=== PATIENT | male | born 1995 | race Caucasian/White ===

== ENCOUNTER 2019-10-05 16:30 | Emergency (ER) | payer SELFPAY ==
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
--- OUTSIDE RECORDS SUMMARY | ~2019-10-05 | XMS | Clinical Summary ---
Demographics + + + | Address | [address] | | | [place] [address] | + + + | Home Phone | | + + + | Preferred Language | Unknown | + + + | Marital Status | Single | + + + | Scientologist Affiliation | Unknown | + + + | Race | Unknown | + + + | Ethnic Group | Unknown | + + + Author + + + | Author | [facility] | | | and [place] | + + + | Organization | [facility] | | | and [place] [...] Team Providers + +------+ + | Care Operational Intelligence Analyst Name | Role | Phone | + +------+ + | Provider Not, In System | PCP | Unavailable | + +------+ + Allergies No Known Allergies Medications + + + +---------+------+------+-------+ | Medication | Sig | Dispensed | Refills | Star | End | Statu | | | | | | t | Date | s | | | | | | Date | | | + + + +---------+------+------+-------+ | losartan (COZAAR) | Take 50 mg by mouth | | 0 | | | Activ | | 50 mg tablet | Daily. | | | | | e | + + + +---------+------+------+-------+ | | Take 1 tablet by | | 0 | | | Activ | | HYDROcodone-acetamin | mouth every 6 hours | | | | | e | | ophen (NORCO) 5-325 | as needed for Pain. | | | | | | | mg per tablet | | | | | | | + + + +---------+------+------+-------+ | ibuprofen | Take 600 mg by mouth | | 0 | | | Activ | | (ADVIL,MOTRIN) 600 | every 6 hours as | | | | | e | | MG tablet | needed for Pain. | | | | | | + + + +---------+------+------+-------+ Active Problems + + + | Problem | Noted Date | + + + | Chronic low back pain | 09/09/2015 | + + + | Multilevel facet arthritis | 09/09/2015 | + + + | Chronic neck pain | 09/09/2015 | + + + Family History + + +------+ + | Medical History | Relation | Name | Comments | + + +------+ + | Early | Brother | | | + + +------+ + | Scoliosis | Brother | | | + + +------+ + | Heart failure | Father | JAX | | + + +------+ + | Hypertension | Father | JAX | | + + +------+ + | Other (see comment) | Father | JAX | DJD | + + +------+ + | Diabetes | Maternal | | | | | Grandfath | | | | | er | | | + + +------+ + | Eczema | Maternal | | | | | Grandfath | | | | | er | | | + + +------+ + | Emphysema | Maternal | | | | | Grandfath | | | | | er | | | + + +------+ + | Heart disease | Maternal | | | | | Grandfath | | | | | er | | | + + +------+ + | Arthritis | Maternal | | | | | Grandmoth | | | | | er | | | + + +------+ + | Hypertension | Maternal | | | | | Grandmoth | | | | | er | | | + + +------+ + | Crohn's disease | Maternal | | | | | Uncle | | | + + +------+ + | Fibromyalgia | Mother | | | + + +------+ + | Lupus | Mother | | | + + +------+ + | Other (see comment) | Mother | | DJD | + + +------+ + | Rheum arthritis | Mother | | | + + +------+ + | Sjogren's syndrome | Mother | | | + + +------+ + | Alcohol abuse | Other | | UNKNOWN RELATION | + + +------+ + | Bleeding problems | Other | | BLOOD CLOTS, UNKNOWN RELATION | + + +------+ + | Gout | Other | | UNKNOWN RELATION | + + +------+ + | Alcohol abuse | Paternal | | | | | Grandfath | | | | | er | | | + + +------+ + | Diabetes | Paternal | | | | | Grandfath | | | | | er | | | + + +------+ + | Heart attack | Paternal | | | | | Grandfath | | | | | er | | | + + +------+ + | Heart disease | Paternal | | | | | Grandfath | | | | | er | | | + + +------+ + | Stroke | Paternal | | | | | Grandfath | | | | | er | | | + + +------+ + | Breast cancer | Paternal | | | | | Grandmoth | | | | | er | | | + + +------+ + | Cancer | Paternal | | LEUKEMIA | | | Grandmoth | | | | | er | | | + + +------+ + | Heart disease | Paternal | | | | | Grandmoth | | | | | er | | | + + +------+ + | Hypertension | Paternal | | | | | Grandmoth | | | | | er | | | + + +------+ + | Neuropathy | Paternal | | | | | Grandmoth | | | | | er | | | + + +------+ + | Uterine cancer | Paternal | | | | | Grandmoth | | | | | er | | | + + +------+ + | Other (see comment) | Sister | | SPINAL BIFIDA | + + +------+ + | Other (see comment) | Sister | | OVER ABUNDANCE OF PROTEIN LOSS | + + +------+ + + +------+ + + | Relation | Name | Status | Comments | + +------+ + + | Brother | | | HOMICIDE, SHOT | | | | (Age | | | | | 20) | | + +------+ + + | Brother | | | | + +------+ + + | Child | | Alive | | + +------+ + + | Father | JAX | Alive | | + +------+ + + | Maternal Grandfather | | | LUNG PROBLEMS | | | | (Age | | | | | 65) | | + +------+ + + | Maternal Grandmother | | Alive | | + +------+ + + | Maternal Uncle | | Alive | | + +------+ + + | Maternal Uncle | | | | + +------+ + + | Mother | | Alive | | + +------+ + + | Other | | | | + +------+ + + | Paternal Grandfather | | | ID | | | | (Age | | | | | 57) | | + +------+ + + | Paternal Grandmother | | Alive | | + +------+ + + | Sister | | Alive | | + +------+ + + | Sister | | | | + +------+ + + | Sister | | | | + +------+ + + Social History + +-------+ +--------+------+ [...] recent travel history available. | + + Last Filed Vital Signs + + + [...] | | + + + + + Plan of Treatment + + + + + | Health Maintenance | Due Date | Last Done | Comments | + + + + + | Vaccine: | | | | | Dtap/Tdap/Td (1 - | 3 | | | | Tdap) | | | | + + + + + | Vaccine: Influenza | | | | | (#1) | 9 | | | + + + + + Results Not on filefrom Last 3 Months Insurance + +--------+ +--------+ +---------+--------+ | Payer | Benefi | Subscriber | Effect | Phone | Address | Type | | | t Plan | ID | mario | | | | | | / | | Dates | | | | | | Group | | | | | | + +--------+ +--------+ +---------+--------+ | [employer] | [employer] | [id number] | 08/18/ | [phone] | | Medica | | MEDICAID HMO | HEALTH | | 2015-P | 1 | | id | | | MDCD | | resent | | | | | | HMO [place] | | | | | | + +--------+ +--------+ +---------+--------+ + +--------+ +--------+ + + | Guarantor Name | Accoun | Relation to | Date | Phone | Billing Address | | | t Type | Patient | of | | | | | | | | | | + +--------+ +--------+ + + | Trae Roche W | Person | Self | [birth year] | [address] | | | al/Fam | | 1995 | [phone] | [place] [address] | | | shayy | | | 6 (Home) | | + +--------+ +--------+ + + Advance Directives + + + + + | Type | Date Recorded | Patient | Explanation | | | | Digital Composer | | + + + + + | Power of | | | | | Sales Support Coordinator | | | | + + + + + | Advance | | | | | Directive | | | | + + + + +
--- OUTSIDE RECORDS SUMMARY | ~2019-10-05 | XMS | Encounter Summary ---
Demographics + + + | Address | [address] | | | [place] [address] | + + + | Home Phone | | + + + | Preferred Language | Unknown | + + + | Marital Status | Single | + + + | Baptist Affiliation | Unknown | + + + | Race | Unknown | + + + | Ethnic Group | Unknown | + + + Author + + + | Author | [facility] | | | and [place] | + + + | Organization | [facility] | | | and [place] [...] Team Providers + +------+ + | Care Hand I Thermal Cutter Name | Role | Phone | + +------+ + | Provider Not, In System | PCP | Unavailable | + +------+ + Encounter Details +--------+ + + + + | Date | Type | Department | Care Team | Description | +--------+ + + + + | 09/09/ | Abstract | [facility] [place] | Jake, | | | 2014 | | PHYSIATRY [address] | [place] [address] | | | | | [place], | [place] [facility], | | | | | [place] [address] | [place] [address] | | | | | [phone] | [phone] | | | | | | | | +--------+ + + + + Social History + +-------+ [...] + + documented as of this encounter Plan of Treatment Not on filedocumented as of this encounter Visit Diagnoses Not on filedocumented in this encounter"
--- OUTSIDE RECORDS SUMMARY | ~2019-10-05 | XMS | Clinical Summary ---
Demographics + + + | Address | [address] | | | [place] [address] | + + + | Home Phone | | + + + | Preferred Language | Unknown | + + + | Marital Status | Single | + + + | Yazidi Affiliation | Unknown | + + + | Race | Unknown | + + + | Ethnic Group | Unknown | + + + Author + + + | Author | [facility] | | | and [place] | + + + | Organization | [facility] | | | and [place] [...] Team Providers + +------+ + | Care Icing Machine Operator Name | Role | Phone | [...] + | Paternal Grandfather | | | [place] | | | | (Age | | [...] | [employer] | MOD[employer] | [id number] | 08/18/ | [phone] | | Medica | | MEDICAID HMO [...] | 1995 | [phone] | [place] [address] | | | shayy | | | 6 (Home) | | + +--------+ +--------+ + + Advance Directives + + + + + | Type | Date Recorded | Patient | Explanation | | | | Cotton Feeder | | + + + + + | Power of | | | | | Mix Technician | | | | + + + + + | Advance | | | | | Directive | | | | + + + + +
--- OUTSIDE RECORDS SUMMARY | ~2019-10-05 | XMS | Encounter Summary ---
Demographics + + + | Address | [address] | | | [place] [address] | + + + | Home Phone | | + + + | Preferred Language | Unknown | + + + | Marital Status | Single | + + + | Yarsani Affiliation | Unknown | + + + | Race | Unknown | + + + | Ethnic Group | Unknown | + + + Author + + + | Author | [facility] | | | and [place] | + + + | Organization | [facility] | | | and [place] | [...] Team Providers + +------+ + | Care Medical Grade Shoemaker Name | Role | Phone | + [...] [address] | | | | | [place], | [place] [facility], | | | | | [place] [address] | [place] [address] | | | | | [phone] | [phone] | | | | | | | [...]
--- OUTSIDE RECORDS SUMMARY | ~2019-10-05 | XMS | Encounter Summary ---
Demographics + + + | Address | [address] | | | [place] [address] | + + + | Home Phone | | + + + | Preferred Language | Unknown | + + + | Marital Status | Single | + + + | Rastafari Affiliation | Unknown | + + + | Race | Unknown | + + + | Ethnic Group | Unknown | + + + Author + + + | Author | [facility] | | | and [place] | + + + | Organization | [facility] | | | and [place] [...] Team Providers + +------+ + | Care Beaming Inspector Name | Role | Phone | + [...] | | n | al disc | Early | [place] | | | | | displacement | Health and | [place], [place] | | | | | , lumbar | Service | [address] Phone: | | | | | region | | [phone] | | | | | [place] of | | Fax: | | | | | lumbar disc | | [phone] | | | | | without | | | | | | | myelopathy | | | +--------+--------+ + + + + Encounter Details +--------+---------+ + + + | Date | Type | Department | Care Team | Description | +--------+---------+ + + + | 09/09/ | Office | [facility] [place] | Jake, | Chronic low back | | 2014 | Visit | PHYSIATRY [address] | [place] [address] | pain (Primary Dx); | | | | [place], | [place], | Multilevel facet | | | | [place] [address] | [place] [address] | arthritis; Chronic | | | | [phone] | [phone] | neck pain | | | | [...] of blood sugars if you are diabetic. penitentiary risk can lead to osteoporosis which is [...] not feel pain. You must have a compressed air pile driver operator to get home from the hospital. You [...] of the procedure you must provide a compressed air pile driver operator to take you home. For all procedur [...] has no apparent deficits with short or correction memory. He has appropriate fund of knowledge [...]
[~2019-10-05 16:30] MED LIST: BACLOFEN10 MG PO; COZAAR50 MG PO; CYCLOBENZAPRINE5 MG PO; EFFEXOR XR75 MG PO; INDOMETHACIN50 MG PO; NORCO 5-325 TA1 EACH PO; VOLTAREN100 GM TOP
[2019-10-06] MEDS ORDERED: CYCLOBENZAPRINE10 MG PO (01:20)
== END 2019-10-05 16:51 | disposition left against medical advice (07) ==
LOC: ED 16:30
DX: Z53.21 Procedure and treatment not carried out due to patient leaving prior to being seen by health care provider (principal)

== ENCOUNTER 2019-10-06 00:25 | Emergency (ER) | payer SELFPAY ==
[~2019-10-06] VITALS: Ht 193 cm; Wt 131.5 kg
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
[2019-10-06] MEDS ORDERED: CYCLOBENZAPRINE10 MG PO (01:20)
== END 2019-10-06 01:28 | disposition home or self-care (01) ==
LOC: ED 00:25
DX: S16.1XXA Strain of muscle, fascia and tendon at neck level, initial encounter (principal); V43.52XA Car driver injured in collision with other type car in traffic accident, initial encounter; I10 Essential (primary) hypertension; Z79.899 Other long term (current) drug therapy
CPT/HCPCS: 72040; 99284-25

== ENCOUNTER 2020-08-26 19:10 | Emergency (ER) | payer OTHER ==
[~2020-08-26] VITALS: Ht 193 cm; Wt 131.5 kg
[~2020-08-26 19:10] MED LIST changes: +CYCLOBENZAPRINE10 MG PO
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
== END 2020-08-26 21:00 | disposition home or self-care (01) ==
LOC: ED 19:10
DX: S16.1XXA Strain of muscle, fascia and tendon at neck level, initial encounter (principal); S39.012A Strain of muscle, fascia and tendon of lower back, initial encounter; V43.52XA Car driver injured in collision with other type car in traffic accident, initial encounter; Z79.899 Other long term (current) drug therapy
CPT/HCPCS: 72040; 72100; 73080; 73110; 73560; 99284-25

== ENCOUNTER 2020-10-18 19:52 | Emergency (ER) | payer OTHER ==
[~2020-10-18] VITALS: Ht 193 cm; Wt 131.5 kg
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
[2020-10-18] MEDS ORDERED: CLONIDINE HCL0.1 MG PO (20:43)
[2020-10-18] MEDS ORDERED: AZITHROMYCIN250 MG PO (20:43)
[2020-10-18] MEDS ORDERED: BUTALB-ACETAMI1 EAC2 PO (20:43)
[2020-10-18] MEDS ORDERED: NORCO 5-325 TA1 EACH PO (23:21)
== END 2020-10-18 23:50 | disposition home or self-care (01) ==
LOC: ED 19:52
DX: U07.1 COVID-19 (principal); I10 Essential (primary) hypertension; F17.200 Nicotine dependence, unspecified, uncomplicated; Z79.899 Other long term (current) drug therapy
CPT/HCPCS: 80053; 85025; 96374; 96375; 99284-25; J1170; J1200; J1885; J2765; J7030

== ENCOUNTER 2020-10-19 19:03 | Emergency (ER) | payer OTHER ==
[~2020-10-19] VITALS: Ht 193 cm; Wt 131.5 kg
[~2020-10-19 19:03] MED LIST changes: +AZITHROMYCIN250 MG PO; +BUTALB-ACETAMI1 EAC2 PO; +CLONIDINE HCL0.1 MG PO
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
[2020-10-20] MEDS ORDERED: DILAUDID4 MG PO (16:16)
[2020-10-20] MEDS ORDERED: REGLAN10 MG PO (16:16)
== END 2020-10-19 20:58 | disposition home or self-care (01) ==
LOC: ED 19:03
DX: U07.1 COVID-19 (principal); R51.9 Headache, unspecified; I10 Essential (primary) hypertension; F17.200 Nicotine dependence, unspecified, uncomplicated; Z79.899 Other long term (current) drug therapy
CPT/HCPCS: 96374; 96375; 99283-25; J1100; J1170; J1885; J2405; J7030

== ENCOUNTER 2020-10-20 13:38 | Emergency (ER) | payer OTHER ==
[~2020-10-20] VITALS: Ht 193 cm; Wt 127.0 kg
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
[2020-10-20] MEDS ORDERED: REGLAN10 MG PO (16:16)
[2020-10-20] MEDS ORDERED: DILAUDID4 MG PO (16:16)
== END 2020-10-20 16:50 | disposition home or self-care (01) ==
LOC: ED 13:38
DX: U07.1 COVID-19 (principal); F17.200 Nicotine dependence, unspecified, uncomplicated; I10 Essential (primary) hypertension; Z79.899 Other long term (current) drug therapy
CPT/HCPCS: 96374; 96375; 99283-25; J1200; J1885; J2765; J7030

== ENCOUNTER 2020-10-22 18:49 | Emergency (ER) | payer OTHER ==
[~2020-10-22] VITALS: Ht 193 cm; Wt 127.0 kg
[~2020-10-22 18:49] MED LIST changes: +DILAUDID4 MG PO; +REGLAN10 MG PO
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
[2020-10-22] MEDS ORDERED: DILAUDID2 MG PO (20:59)
== END 2020-10-22 21:31 | disposition home or self-care (01) ==
LOC: ED 18:49
DX: U07.1 COVID-19 (principal); I10 Essential (primary) hypertension; Z79.899 Other long term (current) drug therapy
CPT/HCPCS: 96374; 96375; 99283-25; J1200; J1885; J2765; J7030

== ENCOUNTER 2021-10-02 13:05 | Emergency (ER) | payer OTHER ==
[~2021-10-02] VITALS: Ht 193 cm; Wt 117.3 kg
[~2021-10-02 13:05] MED LIST changes: +DILAUDID2 MG PO
--- OUTSIDE RECORDS SUMMARY | 2021-10-02 13:08 | XMS ---
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 Care History Medical/Surgical 10/20/2020 [facility] - PATIENT HAS A FOLLOW UP APT WITH DR WARD ON 10/25/2020. 10/06/2019 [facility] - Patient is currently established with [facility]. If patient is seen in the ED during business hours. Please contact CHWs at [facility]. Care Recommendation: If this patient has had 5 or more Emergency Department visits in the last 12 months.\T\nbsp; Patient will require education on the scope and purpose of the ED as an acute care provider not a Primary Care Provider and should not be utilized for chronic conditions.\T\nbsp; These are guidelines and the provider should exercise clinical judgment when providing care. 10/06/2019 [facility] Patient has follow up with Dr. Ward on 11/11/2019.\T\nbsp; Tried to call to advise of walk in clinic - patient\T\#39;s voicemail not set up.\T\nbsp; E.D. VISIT COUNT (12 MO.) 5 DI Ralph TOTAL 5 NOTE: Visits indicate total known visits. 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 - COVID-19 - Headache, unspecified - Headache, unspecified 10/20/2020 13:38 [facility] [place] TYPE: Emergency COMPLAINT: - HEADACHE DIAGNOSES: - Other residential (current) drug therapy - Nicotine dependence, unspecified, uncomplicated - COVID-19 - Essential (primary) hypertension - Headache, unspecified - Headache, unspecified 10/19/2020 19:03 [facility] [place] TYPE: Emergency COMPLAINT: - HEADACHE DIAGNOSES: - Headache, unspecified - Nicotine dependence, unspecified, uncomplicated - Headache, unspecified - COVID-19 - Other residential (current) drug therapy - Essential (primary) hypertension 10/18/2020 19:54 [facility] [place] TYPE: Emergency COMPLAINT: - HEADACHE DIAGNOSES: - Headache, unspecified - COVID-19 - Nicotine dependence, unspecified, uncomplicated - Headache, unspecified - Essential (primary) hypertension - Other residential (current) drug therapy INPATIENT VISIT TRACKING (12 MO.) No inpatient visits to display in this time frame [id number]
[2021-10-02] MEDS ORDERED: PAROXETINE HCL10 MG PO (13:19)
[2021-10-02] MEDS ORDERED: HYDROCODON-ACE1 EA10 PO (15:51)
== END 2021-10-02 16:05 | disposition home or self-care (01) ==
LOC: ED 13:05
DX: S39.011A Strain of muscle, fascia and tendon of abdomen, initial encounter (principal); X50.9XXA Other and unspecified overexertion or strenuous movements or postures, initial encounter; Y99.0 Civilian activity done for income or pay; I10 Essential (primary) hypertension; Z79.899 Other long term (current) drug therapy
CPT/HCPCS: 74177; 80053; 81001; 83690; 85025; 96375; 99284-25; J1885; J2270; J7030

== ENCOUNTER 2021-10-21 13:28 | Emergency (ER) | payer OTHER ==
[~2021-10-21] VITALS: Ht 193 cm; Wt 117.0 kg
[~2021-10-21 13:28] MED LIST changes: +HYDROCODON-ACE1 EA10 PO; +PAROXETINE HCL10 MG PO
--- OUTSIDE RECORDS SUMMARY | 2021-10-21 13:30 | XMS ---
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 - Has Care Guidelines - [facility] - 2 Visits in 30 Days - PDMP CARE PROVIDERS ANGY WARD Internal Medicine 10/06/2019-Current PHONE: Unknown Mary Carmen has no Care Guidelines for this patient. Care History Medical/Surgical 10/03/2021 [facility] Follow up with Dr. Ward on 10/18/2021 for abdominal pain that moved to the groin. 10/20/2020 [facility] - PATIENT HAS A FOLLOW UP APT WITH DR WARD ON 10/25/2020. 10/06/2019 [facility] - Patient is currently established with [facility]. If patient is seen in the ED during business hours. Please contact CHWs at [facility]. Care Recommendation: If this patient has had 5 or more Emergency Department visits in the last 12 months.\T\nbsp; Patient will require education on the scope and purpose of the ED as an acute care provider not a Primary Care Provider and should not be utilized for chronic conditions.\T\nbsp; These are guidelines and the provider should exercise clinical judgment when providing care. E.D. VISIT COUNT (12 MO.) 3 DI Ralph TOTAL 3 NOTE: Visits indicate total known visits. 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
[2021-10-21] MEDS ORDERED: LISINOPRIL10 MG PO (13:44)
[2021-10-21] MEDS ORDERED: PAXIL20 MG PO (13:45)
== END 2021-10-21 15:55 | disposition home or self-care (01) ==
LOC: ED 13:28
DX: R10.31 Right lower quadrant pain (principal); I10 Essential (primary) hypertension; Z79.899 Other long term (current) drug therapy
CPT/HCPCS: 74177; 80048; 85025; 96375; 99284-25; J2270; J2405; J7030; Q9967

== ENCOUNTER 2021-10-27 15:19 | Emergency (ER) | payer OTHER ==
[~2021-10-27] VITALS: Ht 193 cm; Wt 115.9 kg
[~2021-10-27 15:19] MED LIST changes: +LISINOPRIL10 MG PO; +PAXIL20 MG PO
--- OUTSIDE RECORDS SUMMARY | 2021-10-27 15:22 | XMS ---
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 - Has Care Guidelines - [facility] - 2 Visits in 30 Days CARE PROVIDERS MALCOLM WARDLM Internal Medicine 10/25/2021-Current PHONE: Unknown Mary Carmen has no Care Guidelines for this patient. Care History Medical/Surgical 10/26/2021 [facility] Patient was seen on 10/18/[address] Ward; no hernia detected on CT scan. Follow up visit on 11/10/[address] Lance for hernia/gallbladder/lesion consult. 10/25/2021 [facility] - Patient is currently established with [facility]. If patient is seen in the ED during business hours. Please contact CHWs at [facility]. Care Recommendation: If this patient has had 5 or more Emergency Department visits in the last 12 months. Patient will require education on the scope and purpose of the ED as an acute care provider not a Primary Care Provider and should not be utilized for chronic conditions. These are guidelines and the provider should exercise clinical judgment when providing care. 10/03/2021 [facility] Follow up with Dr. Ward on 10/18/2021 for abdominal pain that moved to the groin. Marc VISIT COUNT (12 MO.) 4 DI Ralph TOTAL 4 NOTE: Visits indicate total known visits. ED/UCC VISIT TRACKING (12 MO.) 10/27/2021 15:19 ID [facility] [place] TYPE: Emergency COMPLAINT: - ABDOMINAL PAIN 10/26/2021 16:24 [facility] [place] TYPE: Emergency COMPLAINT: - ABDOMINAL PAIN 10/21/2021 13:[address] [facility] [place] TYPE: Emergency COMPLAINT: - ABD PAIN DIAGNOSES: - Right lower quadrant pain - Unspecified abdominal pain - Essential (primary) hypertension - Other manager terminal (current) drug therapy - Right lower quadrant pain 10/02/2021 13:05 [facility] [place] [facility] [place] TYPE: Emergency COMPLAINT: - ABDOMINAL PAIN DIAGNOSES: - Other and unspecified overexertion or strenuous movements or postures, initial encounter - Right lower quadrant pain - Other manager terminal (current) drug therapy - Strain of muscle, fascia and tendon of abdomen, initial encounter - Essential (primary) hypertension - Civilian activity done for income or pay INPATIENT VISIT TRACKING (12 MO.) No inpatient visits to display in this time frame [id number]
[2021-10-27] MEDS ORDERED: ULTRAM50 MG PO (18:02)
== END 2021-10-27 18:16 | disposition home or self-care (01) ==
LOC: ED 15:19
DX: R10.31 Right lower quadrant pain (principal); I10 Essential (primary) hypertension; Z79.899 Other long term (current) drug therapy
CPT/HCPCS: 96372; 99283; J1885

== ENCOUNTER 2022-01-03 18:25 | Emergency (ER) | payer OTHER ==
[~2022-01-03] VITALS: Ht 193 cm; Wt 115.9 kg
[~2022-01-03 18:25] MED LIST changes: +BUSPIRONE HCL10 MG PO; +CATAPRES-TTS 11 EACH TD; +EXCEDRIN MIGRA1 EAC2 PO; +GABAPENTIN300 MG PO; +OXYCODONE HCL10 MG PO; +PAXIL10 MG PO; +PAXIL10 MG/5 ML PO; +ULTRAM50 MG PO
--- OUTSIDE RECORDS SUMMARY | 2022-01-03 18:28 | XMS ---
PreManage Notification: PRESTON SOLER Security Cap Blocker Events 2 event(s) in the past 18 months Most recent security events: Elopement at [facility] 12/18/2021 10:37 - Other Details: PATIENT LWBS Elopement at [facility] 10/26/2021 16:24 - Other Details: PATIENT LWBS CRITERIA MET - [facility] - 2 Visits in 30 Days - 6 ED Visits in 6 Months - PDMP - [facility] - Has Care Guidelines - Group Notification CARE PROVIDERS ANGY WARD Internal Medicine 10/25/2021-Current PHONE: Unknown Mary Cramen has no Care Guidelines for this patient. Care History Medical/Surgical 11/01/2021 [facility] Patient was seen today by Dr. Lance and has follow ups on 11/07/2021 and 2021. 10/26/2021 [facility] Patient was seen on 10/18/[address] Ward; no hernia detected on CT scan. Follow up visit on 11/10/[address] Lance for hernia/gallbladder/lesion consult. 10/25/2021 [facility] - Patient is currently established with [facility]. If patient is seen in the ED during business hours. Please contact CHWs at [facility]. Care Recommendation: If this patient has had 5 or more Emergency Department visits in the last 12 months. Patient will require education on the scope and purpose of the ED as an acute care provider not a Primary Care Provider and should not be utilized for chronic conditions. These are guidelines and the provider should exercise clinical judgment when providing care. Marc VISIT COUNT (12 MO.) 6 DI Ralph TOTAL 6 NOTE: Visits indicate total known visits. ED/UCC VISIT TRACKING (12 MO.) 01/03/2022 18:26 [facility] [place] TYPE: Emergency COMPLAINT: - POST OP PROBLEM 12/18/2021 10:37 [facility] [place] TYPE: Emergency COMPLAINT: - POST OP PAIN 10/27/2021 15:19 [facility] [place] TYPE: Emergency COMPLAINT: - ABDOMINAL PAIN DIAGNOSES: - Essential (primary) hypertension - Right lower quadrant pain - Other custodial (current) drug therapy 10/26/2021 16:24 [facility] [place] TYPE: Emergency COMPLAINT: - ABDOMINAL PAIN 10/21/2021 13:28 [facility] [place] TYPE: Emergency COMPLAINT: - ABD PAIN DIAGNOSES: - Right lower quadrant pain - Unspecified abdominal pain - Essential (primary) hypertension - Other custodial (current) drug therapy - Right lower quadrant pain 10/02/2021 13:05 [facility] [place] TYPE: Emergency COMPLAINT: - ABDOMINAL PAIN DIAGNOSES: - Other and unspecified overexertion or strenuous movements or postures, initial encounter - Right lower quadrant pain - Other custodial (current) drug therapy - Strain of muscle, fascia and tendon of abdomen, initial encounter - Essential (primary) hypertension - Civilian activity done for income or pay INPATIENT VISIT TRACKING (12 MO.) No inpatient visits to display in this time frame [id number]
== END 2022-01-03 19:32 | disposition home or self-care (01) ==
LOC: ED 18:25
DX: G89.18 Other acute postprocedural pain (principal); R10.30 Lower abdominal pain, unspecified; I10 Essential (primary) hypertension; M19.90 Unspecified osteoarthritis, unspecified site; Z79.899 Other long term (current) drug therapy; Z98.890 Other specified postprocedural states
CPT/HCPCS: 99283

== ENCOUNTER 2022-03-26 16:28 | Emergency (ER) | payer OTHER ==
[~2022-03-26] VITALS: Ht 193 cm; Wt 115.9 kg
--- OUTSIDE RECORDS SUMMARY | 2022-03-26 16:30 | XMS ---
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 Elopement at [facility] 12/18/2021 10:37 - Other Details: PATIENT LWBS Elopement at [facility] 10/26/2021 16:24 - Other Details: PATIENT LWBS CRITERIA MET - Group Notification - [facility] - Has Care Guidelines - 6 ED Visits in 6 Months - PDMP CARE PROVIDERS ANGY WARD Internal Medicine 10/25/2021-Current PHONE: Unknown Mary Carmen has no Care Guidelines for this patient. Care History Medical/Surgical 01/04/2022 [facility] Patient has appt with Dr. Lance on 01/09/2022 11/01/2021 [facility] Patient was seen today by Dr. Lance and has follow ups on 11/07/2021 and 2021. 10/26/2021 [facility] Patient was seen on 10/18/[address] Ward; no hernia detected on CT scan. Follow up visit on 11/10/[address] Lance for hernia/gallbladder/lesion consult. E.D. VISIT COUNT (12 MO.) 7 DI Ralph TOTAL 7 NOTE: Visits indicate total known visits. ED/UCC VISIT TRACKING (12 MO.) 03/26/2022 16:29 [facility] [place] TYPE: Emergency COMPLAINT: - R SIDE ABD PAIN 01/03/2022 18:26 [facility] [place] TYPE: Emergency COMPLAINT: - POST OP PROBLEM DIAGNOSES: - Unspecified osteoarthritis, unspecified site - Essential (primary) hypertension - Lower abdominal pain, unspecified - Other nursing home (current) drug therapy - Other acute postprocedural pain - Other specified postprocedural states 12/18/2021 10:[address] [facility] [place] TYPE: Emergency COMPLAINT: - POST OP PAIN 10/27/2021 15:[address] [facility] [place] TYPE: Emergency COMPLAINT: - ABDOMINAL PAIN DIAGNOSES: - Essential (primary) hypertension - Right lower quadrant pain - Other nursing home (current) drug therapy 10/26/2021 16:[address] 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
[2022-03-26] MEDS ORDERED: HYDROCODON-ACE1 EAC8 PO (18:06)
== END 2022-03-26 18:15 | disposition home or self-care (01) ==
LOC: ED 16:28
DX: S39.011A Strain of muscle, fascia and tendon of abdomen, initial encounter (principal); X50.9XXA Other and unspecified overexertion or strenuous movements or postures, initial encounter; I10 Essential (primary) hypertension; M19.90 Unspecified osteoarthritis, unspecified site; Z79.899 Other long term (current) drug therapy
CPT/HCPCS: 96372; 99283-25; A9270; J1885

== ENCOUNTER 2022-04-04 19:45 | Emergency (ER) | payer OTHER ==
[~2022-04-04] VITALS: Ht 193 cm; Wt 118.0 kg
[~2022-04-04 19:45] MED LIST changes: +HYDROCODON-ACE1 EAC8 PO
--- OUTSIDE RECORDS SUMMARY | 2022-04-04 19:48 | XMS ---
PreManage Notification: PRESTON SOLER Security Relationship Manager Events 3 event(s) in the past 18 months Most recent security events: Elopement at [facility] 01/03/2022 18:26 Details: PATIENT LWBS. Elopement at [facility] 12/18/2021 10:37 - Other Details: PATIENT LWBS Elopement at [facility] 10/26/2021 16:24 - Other Details: PATIENT LWBS CRITERIA MET - Group Notification - PDMP - [facility] - 2 Visits in 30 Days - 6 ED Visits in 6 Months - [facility] - Has Care Guidelines CARE PROVIDERS MALCOLM OLIVEIRALM Internal Medicine 10/25/2021-Current PHONE: Unknown Mary Carmen has no Care Guidelines for this patient. Care History Medical/Surgical 01/04/2022 [facility] Patient has appt with Dr. Lance on 01/09/2022 11/01/2021 [facility] Patient was seen today by Dr. Lance and has follow ups on 11/07/2021 and 2021. 10/26/2021 [facility] Patient was seen on 10/18/[address] Oliveira; no hernia detected on CT scan. Follow up visit on 11/10/[address] Lance for hernia/gallbladder/lesion consult. E.D. VISIT COUNT (12 MO.) [address] [facility] TOTAL 8 NOTE: Visits indicate total known visits. 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 - Essential (primary) hypertension 01/03/2022 18:26 [facility] [place] TYPE: Emergency COMPLAINT: - POST OP PROBLEM DIAGNOSES: - Unspecified osteoarthritis, unspecified site - Essential (primary) hypertension - Lower abdominal pain, unspecified - Other shelter (current) drug therapy - Other acute postprocedural pain - Other specified postprocedural states 12/18/2021 10:37 [facility] [place] TYPE: Emergency COMPLAINT: - POST OP PAIN 10/27/2021 15:19 [facility] [place] TYPE: Emergency COMPLAINT: - ABDOMINAL PAIN DIAGNOSES: - Essential (primary) hypertension - Right lower quadrant pain - Other terminal system operator (current) drug therapy 10/26/2021 16:24 [facility] [place] TYPE: Emergency COMPLAINT: - ABDOMINAL PAIN 10/21/2021 13:28 [facility] [place] TYPE: Emergency COMPLAINT: - ABD PAIN DIAGNOSES: - Right lower quadrant pain - Unspecified abdominal pain - Essential (primary) hypertension - Other shelter (current) drug therapy - Right lower quadrant pain 10/02/2021 13:05 [facility] [place] TYPE: Emergency COMPLAINT: - ABDOMINAL PAIN DIAGNOSES: - Other and unspecified overexertion or strenuous movements or postures, initial encounter - Right lower quadrant pain - Other shelter (current) drug therapy - Strain of muscle, fascia and tendon of abdomen, initial encounter - Essential (primary) hypertension - Civilian activity done for income or pay INPATIENT VISIT TRACKING (12 MO.) No inpatient visits to display in this time frame [id number]
[2022-04-04] MEDS ORDERED: CELEBREX100 MG PO (23:27)
[2022-04-04] MEDS ORDERED: CYCLOBENZAPRINE5 MG PO (23:27)
== END 2022-04-05 00:12 | disposition home or self-care (01) ==
LOC: ED 19:45
DX: S39.011A Strain of muscle, fascia and tendon of abdomen, initial encounter (principal); X50.0XXA Overexertion from strenuous movement or load, initial encounter; I10 Essential (primary) hypertension; Z98.890 Other specified postprocedural states; Z79.899 Other long term (current) drug therapy
CPT/HCPCS: 36415; 74177; 80053; 81001; 85025; 96375; 99284-25; J2270; J2405; Q9967

== ENCOUNTER 2024-06-08 00:41 | Emergency (ER) | payer OTHER ==
[~2024-06-08] VITALS: Ht 193 cm; Wt 112.0 kg
[~2024-06-08 00:41] MED LIST changes: +CELEBREX100 MG PO
[2024-06-08] MEDS ORDERED: droPERidol 5 MG/2 ML VIAL IV ONE (01:00)
[2024-06-08] MEDS ORDERED: KETOROLAC TROMETHAMINE 30 MG/ML VIAL IV ONE (01:15)
[2024-06-08 01:16] LABS: MCV 90.2 fl (81-99)
[2024-06-08 01:30] LABS: BASOPHILS 0.2 % (0-2); EOSINOPHILS 1.2 % (0-6); HEMATOCRIT 43.1 % (35.0-50.0); HEMOGLOBIN 14.9 g/dL (12.0-18.0); LYMPHOCYTES 15.8 % (24-44); MCH 31.3 (27-36); MCHC 34.7 g/dl (30-36); NEUTROPHILS 75.8 % (39-80); PLATELET COUNT 233 K/uL (140-440); RBC 4.78 M/ul (4.3-5.7)
[2024-06-08] MEDS ORDERED: SODIUM CHLORIDE 0.9% 1,000 ML IV PRN (01:30)
[2024-06-08 01:32] LABS: ALBUMIN 4.3 g/dL (3.4-5.0); ALBUMIN/GLOBULIN RATIO 1.08 (1.1-2.4); BILIRUBIN, TOTAL 0.8 ng/dL (0.2-1.0); BUN/CREATININE RATIO 9.7 (6.0-28.6); CALCIUM 9.7 mg/dL (8.5-10.1); CREATININE, SERUM 1.03 mg/dL (0.70-1.30); PROTEIN, TOTAL 8.3 g/dL (6.4-8.2)
[2024-06-08] MEDS ORDERED: DICYCLOMINE HCL10 MG PO (03:25)
[2024-06-08] MEDS ORDERED: ONDANSETRON ODT8 MG PO (03:25)
[2024-06-08] MEDS ORDERED: PROMETHAZINE HCL 25 MG SUPP. HOME.PACK PR ONE (03:30)
[2024-06-08] MEDS ORDERED: DICYCLOMINE HCL 10 MG HOME.PACK PO ONE (03:30)
[2024-06-08] MEDS ORDERED: PROMETHAZINE HCL 25 MG HOME.PACK PO ONE (03:30)
[2024-06-08 03:47] VITALS: BP 133/75
== END 2024-06-08 03:48 | disposition home or self-care (01) ==
LOC: ED 00:41
PROVIDERS: Family Medicine
DX: K52.9 Noninfective gastroenteritis and colitis, unspecified (principal); I10 Essential (primary) hypertension; Z88.8 Allergy status to other drugs, medicaments and biological substances; Z79.899 Other long term (current) drug therapy
CPT/HCPCS: 36415; 74177; 80053; 83690; 83735; 85025; J1790; J1885; J7030; Q9967

== ENCOUNTER 2024-08-26 02:58 | Emergency (ER) | payer OTHER ==
[~2024-08-26] VITALS: Ht 193 cm; Wt 111.0 kg
[~2024-08-26 02:58] MED LIST changes: +DICYCLOMINE HCL10 MG PO; +ONDANSETRON ODT8 MG PO
[2024-08-26] MEDS ORDERED: SODIUM CHLORIDE 0.9% 500 ML IV PRN (03:30)
[2024-08-26] MEDS ORDERED: droPERidol 5 MG/2 ML VIAL IV ONE (03:30)
[2024-08-26] MEDS ORDERED: LORazepam 2 MG/ML VIAL IV ONE (03:45)
[2024-08-26 03:49] LABS: HEMOGLOBIN 14.8 g/dL (12.0-18.0)
[2024-08-26 03:51] LABS: BASOPHILS 0.4 % (0-2); HEMATOCRIT 43.3 % (35.0-50.0); LYMPHOCYTES 15.6 % (24-44); MCH 31.3 (27-36); MCHC 34.3 g/dl (30-36); MCV 91.1 fl (81-99); PLATELET COUNT 262 K/uL (140-440); RBC 4.75 M/ul (4.3-5.7); RDW 13.8 (10.5-15.0)
[2024-08-26 04:03] LABS: ALBUMIN 3.9 g/dL (3.4-5.0); ALBUMIN/GLOBULIN RATIO 1.08 (1.1-2.4); ANION GAP 12.4 (7-21); BILIRUBIN, TOTAL 0.7 ng/dL (0.2-1.0); BUN/CREATININE RATIO 6.42 (6.0-28.6); CALCIUM 9.4 mg/dL (8.5-10.1); CREATININE, SERUM 1.09 mg/dL (0.70-1.30); MAGNESIUM 1.8 mg/dL (1.8-2.4); POTASSIUM 3.4 mmol/L (3.5-5.1); PROTEIN, TOTAL 7.5 g/dL (6.4-8.2)
[2024-08-26] MEDS ORDERED: diphenhydrAMINE HCL 50 MG/ML VIAL IV ONE (04:15)
[2024-08-26] MEDS ORDERED: MORPHINE SULFATE 4 MG/ML VIAL IV ONE (04:45)
[2024-08-26] MEDS ORDERED: ondansetron HCL 4 MG/2 ML VIAL IV ONE (04:45)
[2024-08-26] MEDS ORDERED: HYDROXYZINE HCL25 MG PO (05:25)
[2024-08-26 05:40] VITALS: BP 00/00
== END 2024-08-26 05:40 | disposition home or self-care (01) ==
LOC: ED 02:58
PROVIDERS: Family Medicine
DX: F41.9 Anxiety disorder, unspecified (principal); R11.15 Cyclical vomiting syndrome unrelated to migraine; I10 Essential (primary) hypertension; Z88.8 Allergy status to other drugs, medicaments and biological substances
CPT/HCPCS: 36415; 80053; 80307; 83735; 85025; 96361; 96374; 96375; 99284-25; J1200; J1790; J2060; J2270; J2405; J7040